=== PATIENT | female | born 1950 | race Caucasian/White ===

== ENCOUNTER 2024-09-17 17:18 | Outpatient (REF) | payer MEDICARE, MEDICAID, SELFPAY ==
--- OUTSIDE RECORDS SUMMARY | 2024-09-17 17:31 | XMS_ITS | Patient Health Record ---
Author Organization [facility] es Address [address] [address] Care Team Providers Care Ortho/Prosthetic Aide Name Role Phone Alona Martinez Primary Care Provider Isaac To [phone] Allergies Allergen (clinical drug ingredient) Drug/Non Drug Allergy documented on EMR Reaction Allergy Type Onset Date Status ziprasidone Geodon SUICIDAL THOUGHTS Drug Allergy Active Thorazine Unknown Drug Allergy Active PCN RASH Drug Allergy Active Reason For Referral No Information Medications Medication SIG (Take, Route, Frequency, Duration) Notes Start Date End Date Status Depakote 500 MG as directed Orally bid Active ZyPREXA 20 MG 1 tablet Orally once at HS; Duration: 30 day(s) Active clonazePAM .5 1 tablet Orally twic e daily; Duration: 30 day(s) Activ e Combivent 103-18 MCG/ACT 2 puffs Inhalat ion Six times a day Active Omeprazole 20 MG 1 capsule Orally Once a day 12/31 Active Lisinopril 40mg 1 tablet Orally Once a day; Duration: 30 days Active CeleXA 20 MG 1 tablet Orally Once a day; Duration: 30 day(s) Active Problems Problem Type SNOMED Code ICD Code Onset Dates Problem Status W/U Status Risk Notes Problem Bipolar I disorder (533588598) Bipolar I disorder, most recent episode (or current) unspecified (296.7) Active confirmed Problem Essential hypertension (401.9) Active confirmed Problem Esophageal reflux (622410715) Esophageal reflux (530.81) Active confirmed Plan Of Treatment No Information Insurance Providers Payer Name Payer Address Payer Phone Subscriber Number Group Number Insured Name Patient Relationship to Insured Coverage Start Date Coverage End Date [employer] [address] [place] [address] [id number] MELDOIE ROSARIO Self - patient is the insured 2 z[employer] [facility] after [employer] [address] [place] [address] [id number] MELODIE ROSARIO Self - patient is the insured Medical (General) History Medical History History ICD Code essential hypertension hyperlipidemia osteoarthritis overactive bladder bipolar disorder schizophrenia COPD HYPOTHYROIDISM Surgical History Surgery Date(Month/Year) HYSTERECTOMY Hospitalization History Reason Date(Month/Year) BIPOLAR/DEPRESSION-MULTIPLE TIMES
--- OUTSIDE RECORDS SUMMARY | 2024-09-17 17:31 | XMS_ITS ---
Author Organization [facility] Care Team Providers Care Acid Plant Helper Name Role Phone [facility] Audiology Unavailable Unavailable David Fulton Unavailable Unavailable [facility] Dental Unavailable Unavailable [facility], Podiatry Unavailable Unavailable Mika Zepeda Unavailable Unavailable Mika Zepeda Unavailable Unavailable [facility] Vision Unavailable Unavailable Eron,NCP, Yuerong Unavailable Unavailable Allergies and adverse reactions Code CodeSystem Substance Reaction Severity StartDate Concern Status 04332 RXNORM Zolpidem Unknown 05/09/2017 active 468758 RXNORM Ziprasidone Unknown 07/16/[address] Penicillins Unknown 07/16/2013 activ e Haldol Unknown 05/09/2017 active Care Team Name Role Address Phone Organization Dates Audiology [facility] 07/16/2013 - 04/17/2018 David Fulton [address] [place] [address], [id number], [place] (Office): : [facility] 07/16/2013 - 04/17/2018 Dental [facility] 07/16/2013 - 04/17/2018 Podiatry [facility] 07/16/2013 - 04/17/[address] [place], [place] [address]y, [place], [address], [facility] (Office): : [facility] 07/16/2013 - 04/17/2018 Mika Zepeda [address] [facility] [address] [address], [place], [address], [facility] (Office): : [facility] 07/16/2013 - 04/17/2018 Vision [facility] 07/16/2013 - 04/17/2018 ASHLEIGH Vazquez [address], [address], [facility] (Office): : : [facility] 07/16/2013 - 04/17/2018 Goals Section Goals Description Status Target Date Julieth will be discharged to a safe environment o f her choice Active 06/02/2018 Julieth will be free from adve rse reactions related to anti-anxiety therapy through the review date. Active 06/02/2018 Julieth will be free from adve rse reactions related to antidepressant therapy through the review date. Active 2018 Julieth will be/remain free of psychotropic drug related complications through the review date. Active 06/02/2018 Julieth will co-operate w/recommendations per onco logy physicians. Active 06/02/2018 Julieth will display optimal b reathing patterns daily through review date. Active 06/02/2018 Julieth will have no actual or reported self harming behavior through the review date. Active 06/02/2018 Julieth will have no complicat ions related to hyperthyroidism through the review date. Active 06/02/2018 Julieth will not sustain serious injury through e review date. Active 06/02/2018 Julieth will reamin free from UTI and if UTI occurs will resolve without complications through review date. Active 06/02/2018 Julieth will remain free from discomfort, complications or s/sx related to dx of GERD through review date. Active 06/02/2018 Julieth will remain free from discomfort, complications or s/sx related to gastro-intestinal alterations through review date. Active 06/02/2018 Julieth will remain free of co mplications related to hypertension through review date. Active 06/02/2018 Julieth will resume usual activities through the r eview date. Active 06/02/2018 Julieth will show no decline i n visual function through the review date. Active 06/02/2018 Julieth will show no limitatio ns to day-today activities r/t pain through review. - Ambulates w/ walker throughout facility frequently throughout day, Attends most activities, Able to provide self care with minimal staff assistance. Active 06/02/2018 Resident will be free of sig nificant weight changes (5% x 1mo or 10% x 6mo). Active 06/02/2018 Resident will consume at [address] 75% of most meals through review date. Active 06/02/2018 Resident will enjoy group ac tivities of her choice 1 - 3 times per week. Will accept in room activities prn. Active 06/02/2018 The resident will have impro judy mood state (happier, calmer appearance, no s/sx of depression, anxiety or sadness, decrease in obsessive though about doctor and medication changes) through the review date. Active 06/02/2018 The resident will maintain c urrent level of function through the review date: - supervision w/prn limited assist Active 06/02/2018 The resident will maintain c urrent level of mobility : able to walk with walker unassissted through review date. Active 04/2018 The resident will maintain o r develop clean and intact skin by the review date. Active 06/02/2018 The resident will not displa y any complications related to immune deficiency. Active 06/02/2018 The resident will remain shivam e from infection through the review date. Active 06/02/2018 The resident will remain shivam e of complications related to immobility, including contractures, thrombus formation, skin-breakdown, fall related injury through the next review date. Active 06/02/2018 The resident will remain shivam e of s/sx of distress, symptoms of depression, anxiety or sad mood by/through review date. Active 06/02/2018 The resident will utilize ef fective coping mechanisms as evidenced by: writing in journal, doing activities. Active 06/02/2018 The resident will verbalize decrease in frequency of pain and ability to cope with incompletely relieved pain through the review date. Active 06/02/2018 The resident will verbalize feelings related to emotional state by review date. Active 06/02/2018 The resident's risk for sept icemia will be minimized/prevented via prompt recognition and treatment of symptoms of UTI through the review date. Active 06/02/2018 Will sleep 6-8hrs @ HS Active 9 Will state satisfaction w/current Nicotrol use. Active 06/02/2018 Wt. loss w/o nutrient deplet ion beneficial (1-2 pounds per week) d/t obese BMI/lower back pain. Active 06/02/2018 Immunizations Immunization Status Vaccine Details Vaccine Code CodeSystem Date Notes Influenza completed Influenza, high-dose, split virus, quadrivalent, injectable, preservative free lotNumber: [id number] Mfg: sanofi pasteur Given 0.5 ml Left Deltoid intramuscularly 197 CVX created date: 8 consent date: 8 administe red date: 8 Influenza completed Influenza, high-dose, split virus, quadrivalent, injectable, preservative free lotNumber: [id number] expiry: 06/04/2017 Mfg: Sanofi Pastuer Given 0.5 ml Right Deltoid intramuscularly 197 CVX created date: 7 consent date: 7 administe red date: 7 Influenza completed Influenza, high-dose, split virus, quadrivalent, injectable, preservative free lotNumber: [id number] expiry: 06/30/2016 Mfg: Seqirus Given 0.5 ml Right Deltoid intramuscularly 197 CVX created date: 6 consent date: 6 administe red date: 6 Influenza completed Influenza, high-dose, split virus, quadrivalent, injectable, preservative free expiry: 08/31/2015 Mfg: sanofi pasteur Given 0.5 ml Right Deltoid intramuscularly 197 CVX created date: 5 consent date: 5 administe red date: 5 Influenza completed Influenza, high-dose, split virus, quadrivalent, injectable, preservative free lotNumber: [id number] expiry: 08/01/2014 Mfg: [facility] Pharmacuticals Given 1.0 dose Left Deltoid intramuscularly 197 CVX created date: 4 consent date: 4 administe red date: 4 Educated by Zak on 12/07/2013 Influenza completed Influenza, high-dose, split virus, quadrivalent, injectable, preservative free lotNumber: [id number] expiry: 08/30/2013 Given 0.5 ml intramuscularly 197 CVX created date: 4 administe red date: 3 Given at [facility] Pneumovax Dose 1 completed pneumococcal polysaccharide vaccine, 23 valent lotNumber: [id number] expiry: 07/15/2018 Mfg: [employer] Given 0.5 ml Left Deltoid intramuscularly 33 CVX created date: 8 consent date: 8 administe red date: 8 Pneumovax Dose 1 completed pneumococcal polysaccharide vaccine, 23 valent lotNumber: [id number] expiry: 04/30/2013 Given 0.5 ml intramuscularly 33 CVX created date: 4 administe red date: 2 Received at [facility] TB 1 Step Mantoux (PPD) completed tuberculin skin test; unspecified formulation lotNumber: [id number] expiry: 01/30/2019 Mfg: PAR Pharm. Given 0.1 ml Left Forearm intradermally 98 CVX created date: 8 consent date: 8 administe red date: 8 TB 1 Step Mantoux (PPD) completed tuberculin skin test; unspecified formulation lotNumber: [id number] expiry: 11/30/2017 Mfg: [employer] Given 0.1 ml Right Forearm intradermally 98 CVX created date: 7 consent date: 7 administe red date: 7 TB 1 Step Mantoux (PPD) completed tuberculin skin test; unspecified formulation lotNumber: [id number] expiry: 01/31/2016 Mfg: [employer] Given 0.1 ml Right Deltoid intradermally 98 CVX created date: 6 consent date: 6 administe red date: 6 TB 1 Step Mantoux (PPD) completed tuberculin skin test; unspecified formulation lotNumber: [id number] expiry: 01/01/2016 Mfg: PAR Pharm. Given 0.1 ml Right Forearm intradermally 98 CVX created date: 5 consent date: 5 administe red date: 5 TB 1 Step Mantoux (PPD) completed tuberculin skin test; unspecified formulation lotNumber: [id number] expiry: 03/03/2015 Mfg: aplisol Given 0.1 ml Right Forearm intradermally 98 CVX created date: 4 administe red date: 4 TB 1 Step Mantoux (PPD) completed tuberculin skin test; unspecified formulation lotNumber: [id number] Given 0.1 ml intradermally 98 CVX created date: 4 administe red date: 3 Given at [facility]. (annual) PREVNAR 13 completed pneumococcal conjugate vaccine, 13 valent lotNumber: [id number] expiry: 10/01/2015 Mfg: Pfizer Given 0.5 ml Left Deltoid intramuscularly 133 CVX created date: 5 consent date: 5 administe red date: 5 Educated by Eric on 05/19/2014 Guardian verbally approved for resident to receive the Prevnar 13. Mental Status Section Date Assessment Total Score Description 04/17/2018 BIMS 15 cognitively int act CAM 0 No delirium ind icated PHQ-9 11 moderate depres zoë 03/04/2018 BIMS 15 cognitively int act CAM 0 No delirium ind icated PHQ-9 11 moderate depres zoë Problems Problem # Description Date of onset Resolved Date Code CodeSystem Concern Status 1 MUSCLE WEAKNESS (GENERALIZED) [address] active 2 FUSION OF SPINE, LUMBAR REGION [address] active 3 UNSPECIFIED LACK OF COORDINATION [address] active 4 AGE-RELATED NUCLEAR CATARACT, BILATERAL [address] active 5 OTHER SPONDYLOSIS WITH RADICULOPATHY, LUMBOSACRAL REGION [address] active 6 PERSONAL HISTORY OF MALIGNANT NEOPLASM OF BREAST [address] active 7 HYPERTENSIVE HEART DISEASE WITHOUT HEART FAILURE [address] active 8 MALIGNANT 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 [address] active 9 SCHIZOAFFECTIVE DISORDER, BIPOLAR TYPE [address] active 10 SPINAL STENOSIS, LUMBAR REGION 5 12/01/[address] completed 11 CHRONIC OBSTRUCTIVE PULMONARY DISEASE, UNSPECIFIED [address] active 12 CHRONIC PAIN SYNDROME [address] active 13 PRIMARY GENERALIZED (OSTEO)ARTHRITIS [address] active 14 CYCLOTHYMIC DISORDER [address] active 15 OTHER BIPOLAR DISORDER [address] active 16 POSTMENOPAUSAL ATROPHIC VAGINITIS [address] active 17 URGE INCONTINENCE [address] active 18 GASTRO-ESOPHAGEAL REFLUX DISEASE WITHOUT ESOPHAGITIS [address] active 19 HYPOTHYROIDISM, UNSPECIFIED [address] active 20 INSOMNIA DUE TO OTHER MENTAL DISORDER [address] active 21 MAJOR DEPRESSIVE DISORDER, RECURRENT SEVERE WITHOUT PSYCHOTIC FEATURES [address] active 22 OTHER CHRONIC CYSTITIS WITHOUT HEMATURIA [address] active 23 OTHER SCHIZOPHRENIA [address] active 24 OTHER SPECIFIED ANXIETY DISORDERS [address] active Reason for Referral No Reasons for Referral Entered Social History Social History Observation Description Start Date End Date Code Code System Current Smoking Status Tobacco smoking consumption unknown 152243259 SNOMED CT Sex Assigned At Female 1950 07843-6 [facility] Gender Identity Vital Signs Code Code System Vitals Name Values and Units Timing Information 8462-4 [facility] Blood Pressure-Diastolic Value=88 Un its=mmHg 04/08/2018 8480-6 [facility] Blood Pressure-Systolic Ctoaw=670 Un its=mmHg 04/08/2018 8867-4 [facility] Heart rate Value=64.0 Units=/min 08/2018 59470-4 [facility] Weight Xqgwr=397.9 Units=Lbs 06/2018 9279-1 [facility] Respiratory Rate Value=18.0 Units=/m in 04/01/2018 8310-5 [facility] Body Temperature Value=96.6 Units= F 04/01/2018 18617-7 [facility] Pain Level Value=1.0 03/15/2018 8302-2 [facility] Height Value=67.0 Units=Inches 03/07/2018 03192-0 [facility] O2 % BldC Oximetry Value=96.0 Units= % 05/13/2017
--- OUTSIDE RECORDS SUMMARY | 2024-09-17 17:31 | XMS_ITS | Continuity of Care Document ---
Author Organization [facility] Address [address] [place] [address] Phone [phone] Care Team Providers Care Sdc Teacher Name Role Phone Ema Bradford MD Care Team Information Algorithm Design Engineer [phone] Assessments Date Code Description Provider 08/19/2022 N17.9 Acute kidney failure, unspec ified Nathan Flores MD 08/19/2022 I13.10 Hypertensive hea rt and chronic kidney disease without heart failure, with stage 1 through stage 4 chronic kidney disease, or unspecified chronic kidney disease Nathan Flores MD 08/19/2022 I10 Essential (primary) anahi Flores MD 08/19/2022 D64.9 Anemia, unspecified Nathan bright MD 08/16/2022 N17.9 Acute kidney failure, unspec ified Michael Rosario M.D. 08/16/2022 I13.10 Hypertensive hea rt and chronic kidney disease without heart failure, with stage 1 through stage 4 chronic kidney disease, or unspecified chronic kidney disease Michael Rosario M.D. 08/16/2022 I10 Essential (primary) hyperten zoë Rosario M.D. 08/16/2022 D64.9 Anemia, unspecified Michael Rosario M.D.
--- OUTSIDE RECORDS SUMMARY | 2024-09-17 17:31 | XMS_ITS | Clinical Summary ---
Author Organization [facility] Address [address] [place] [address] Phone Care Team Providers Care Power Plant Operator Name Role Phone Ema Bradford MD Primary Care Provider [phone] Social History Tobacco Use Types Packs/Day Years Used Date Smoking Tobacco: Never Assessed Comments Unknown Sex and Gender Information Value Date Recorded Sex Assigned at Not on file Legal Sex Female 9:34 PM EST Gender Identity Not on file Sexual Orientation Not on file Plan of Treatment Health Maintenance Due Date Last Done Comments Bone Density Scan 1950 CT Colonography 1950 Colonoscopy 1950 Colorectal Cancer Screening 1950 FIT-DNA (Cologuard) 1950 FIT 1950 Lipid Panel 1950 Sigmoidoscopy 1950 Yearly Adult Physical 1950 Hepatitis C Screening 10/09/1967 DTaP/Tdap/Td Vaccines (1 - Tdap) 10/09/1971 Mammogram 1989 Pneumococcal Vaccine (1 of 1 - PCV) 10/09/1999 Zoster Vaccines (1 of 2) 10/09/1999 COVID-19 Vaccine ( - 2023-2 5 season) 2023 RSV High Risk: (Elderly (60+ ) or Population) (1 - 1-dose 75+ series) 2024 Influenza Vaccine (#1) 2024 HIB Vaccines Aged Out No longer eligi ble based on patient's age to complete this topic HPV Vaccines Aged Out No longer eligi ble based on patient's age to complete this topic Hepatitis A Vaccines Aged Out No long er eligible based on patient's age to complete this topic Hepatitis B Vaccines Aged Out No long er eligible based on patient's age to complete this topic IPV Vaccines Aged Out No longer eligi ble based on patient's age to complete this topic Meningococcal Vaccine Aged Out No lenora siria eligible based on patient's age to complete this topic Rotavirus Vaccines Aged Out No longer eligible based on patient's age to complete this topic Care Teams Power Plant Operator Relationship Specialty Start Date End Date Ema Bradford MD [address] [facility] [place] [address] PCP - General 03/13/22
[2024-09-17 17:38] LABS: Hematocrit 33.5 % (36.0-48.0); Hemoglobin 9.8 g/dL (12.0-16.0); Immature Granulocytes Abs Auto 0.02 10^3/uL (0.00-0.03); Immature Granulocytes Pct Auto 0.3 % (0.0-0.5); Lymphocytes Absolute Auto 1.5 10^3/uL (1.2-3.8); Mean Corpuscular HGB Conc 29.3 g/dL (29.9-35.2); Mean Corpuscular Hemoglobin 26.7 pg (26.7-34.0); Mean Corpuscular Volume 91.3 fL (81.0-99.0); Platelet Count 296 10^3/uL (150-450); Red Blood Count 3.67 10^6/uL (4.20-5.40); White Blood Count 6.9 10^3/uL (4.0-11.0)
[2024-09-17 17:45] LABS: Anion Gap 10.8; Blood Urea Nitrogen 18.0 mg/dL (7.0-18.0); Calcium 8.6 mg/dL (8.5-10.1); Carbon Dioxide 34.8 mmol/L (21.0-32.0); Chloride 103 mmol/L (98-107); Estimated GFR (African America >60 (>=60 mL/min/1.73m^2); Estimated GFR (Non-African Ame 58 (>=60 mL/min/1.73m^2); Glucose 73 mg/dL (74-106); Potassium 4.6 mmol/L (3.5-5.1); Sodium 144 mmol/L (136-145)
== END 2024-09-17 17:19 | disposition home or self-care (01) ==
LOC: LAB 17:18
PROVIDERS: PCP Internal Medicine; Visit Provider Internal Medicine
DX: D64.9 Anemia, unspecified (principal)
CPT/HCPCS: 36415; 80048; 85025